=== PATIENT | male | born 1995 | race Caucasian/White ===

== ENCOUNTER 2023-06-14 18:09 | Emergency (ER) | payer BC, OTHER ==
[2023-06-14] MEDS ORDERED: Lidocaine 1% PF 5 ML VIAL ONE (18:38)
[2023-06-14] MEDS ORDERED: Boostrix 0.5 ML (Tdap) VIAL (>/=7 yrs of age) ONE (18:38)
== END 2023-06-14 19:28 | disposition home or self-care (01) ==
LOC: ERS 18:09
DX: S60.451A Superficial foreign body of left index finger, initial encounter (principal); W45.8XXA Other foreign body or object entering through skin, initial encounter
CPT/HCPCS: 90471; 90715